=== PATIENT | female | born 1985 | race Caucasian/White ===

== ENCOUNTER 2016-11-20 19:18 | Emergency (ER) | payer SELFPAY ==
[2016-11-20 20:23] VITALS: TEMP 98.2; O2SAT 98
--- NOTE | 2016-11-20 21:38 | ED.PDOC ---
History of Present Illness - General Chief Complaint: Skin/Abrasion/Tear Stated Complaint: rash on side of neck Time Seen by Provider: 11/20/16 21:37 Source: patient, RN notes reviewed, Vital Signs reviewed - History of Present Illness Initial Comments: stated skin rash right side of neck started yesterday denies fever sore throat insect bite food allergies new soap Timing/Duration: other - 2days ago worse today Severity: moderate Location: face - neck area right Improving Factors: nothing Worsening Factors: nothing Associated Symptoms: rash, other - pain Allergies/Adverse Reactions: Allergies NO KNOWN ALLERGY Allergy (Verified 01/31/16 08:34) Home Medications: Ambulatory Orders Acyclovir [Zovirax] 800 mg PO TID #20 tab 11/20/16 Cephalexin 1,000 mg PO BID #30 cap 11/20/16 Tramadol HCl 50 mg PO TID PRN #14 tab 11/20/16 Review of Systems - Review of Systems Constitutional: States: no symptoms reported EENTM: States: no symptoms reported Respiratory: States: no symptoms reported Cardiology: States: no symptoms reported Gastrointestinal/Abdominal: States: no symptoms reported Genitourinary: States: no symptoms reported Musculoskeletal: States: no symptoms reported Skin: States: rash Endocrine: States: no symptoms reported Hematologic/Lymphatic: States: no symptoms reported Past Medical History (General) - Patient Medical History Hx Seizures: No Hx Stroke: No Hx Dementia: No Hx Asthma: No Hx of COPD: No Hx Cardiac Disorders: No Hx Congestive Heart Failure: No Hx Pacemaker: No Hx Hypertension: No Hx Thyroid Disease: No Hx Diabetes: No Hx Gastroesophageal Reflux: No Hx Renal Disease: No Hx Cancer: No Hx of HIV: No Hx Hepatitis C: No Hx MRSA: No Surgical History: no surgical history - Vaccination History Hx Influenza Vaccination: No Hx Pneumococcal Vaccination: No - Social History Hx Tobacco Use: No Hx Alcohol Use: No Hx Substance Use: No Hx Substance Use Treatment: No Hx Depression: No - Female History Patient is a Female of Child Bearing Age (10 -59 yrs old): Yes Hx Last Menstrual Period: 05/29/14 Patient : No Family Medical History - Family History Mother Family History: No Known Living Status: Still Living Physical Exam - Physical Exam General Appearance: Alert, No apparent distress Eyes, Ears, Nose, Throat Exam: PERRL/EOMI, normal ENT inspection, TMs normal, pharynx normal Neck: non-tender, full range of motion, supple Cardiovascular/Chest: normal peripheral pulses, regular rate, rhythm, no edema, no gallop Respiratory: chest non-tender, lungs clear, normal breath sounds Gastrointestinal/Abdominal: normal bowel sounds, non tender, soft, no organomegaly Back Exam: normal inspection, no CVA tenderness Extremity: normal range of motion, non-tender, normal inspection Neurologic: alert, normal mood/affect, oriented x 3 Skin Exam: warm/dry Skin Problem Location: neck Skin Character: erythema, macules, warm Lymphatic: no adenopathy Progress - Results/Orders Results/Orders: Laboratory Results WBC 7.1 K/mm3 (4.8-10.8) 11/20/16 21:50 RBC 4.08 M/mm3 (4.20-5.40) L 11/20/16 21:50 Hgb 13.3 gm/dL (12.0-16.0) 11/20/16 21:50 Hct 38.7 % (36.0-47.0) 11/20/16 21:50 MCV 94.8 fl (81.0-99.0) 11/20/16 21:50 MCH 32.5 pg (27.0-31.0) H 11/20/16 21:50 MCHC 34.4 g/dL (33.0-37.0) 11/20/16 21:50 RDW 11.7 % (11.5-14.5) 11/20/16 21:50 Plt Count 227 K/mm3 (130-400) 11/20/16 21:50 MPV 8.2 fl (7.40-10.4) 11/20/16 21:50 Absolute Neuts (auto) 3.90 K/uL (1.8-6.8) 11/20/16 21:50 Absolute Lymphs (auto) 2.50 K/uL (1.0-3.4) 11/20/16 21:50 Absolute Monos (auto) 0.50 K/uL (0.2-0.8) 11/20/16 21:50 Absolute Eos (auto) 0.10 K/uL (0.0-0.4) 11/20/16 21:50 Absolute Basos (auto) 0.00 K/uL (0.0-0.1) 11/20/16 21:50 Neutrophils % 55.1 % (42.0-78.0) 11/20/16 21:50 Lymphocytes % 35.8 % (20.0-50.0) 11/20/16 21:50 Monocytes % 7.2 % (2.0-9.0) 11/20/16 21:50 Eosinophils % 1.4 % (1.0-5.0) 11/20/16 21:50 Basophils % 0.5 % (0.0-2.0) 11/20/16 21:50 Serum HCG, Qual Negative 11/20/16 21:50 Departure - Departure Clinical Impression: Rash/skin eruption Time of Disposition: 22:42 Disposition: Discharge to Home or Self Care Condition: Good Departure Forms: ED Discharge - Pt. Copy, Patient Portal Self Enrollment Instructions: DI for Rash Prescriptions: Cephalexin 1,000 mg PO BID #30 cap Tramadol HCl 50 mg PO TID PRN #14 tab PRN Reason: Pain Acyclovir [Zovirax] 800 mg PO TID #20 tab Home Medications: Ambulatory Orders Acyclovir [Zovirax] 800 mg PO TID #20 tab 11/20/16 Cephalexin 1,000 mg PO BID #30 cap 11/20/16 Tramadol HCl 50 mg PO TID PRN #14 tab 11/20/16 Additional Instructions: RETURN TO EMERGENCY ROOM NEEDED;EXCUSE FROM WORK 11/21-03/2017;RETURN TO WORK 11/24/2016 WITHOUT RESTRICTIONS
[2016-11-20] MEDS ORDERED: HYDROcodone 7.5MG/APAP 325MG 1 EA TAB PO ONE (22:29)
[2016-11-20] MEDS ORDERED: CEPHALEXIN 500MG CAP (ER DISP) PO ONE (22:38)
[2016-11-20 23:08] VITALS: BP 124/68
== END 2016-11-20 23:08 | disposition home or self-care (01) ==
LOC: ER 19:18
DX: R21 Rash and other nonspecific skin eruption (principal)

== ENCOUNTER 2017-01-19 11:21 | Emergency (ER) | payer OTHER ==
[2017-01-19] MEDS ORDERED: IBUPROFEN 200 MG TAB PO ONE (11:36)
[2017-01-19 13:40] VITALS: BP 107/72; TEMP 99; O2SAT 100
[2017-01-19] MEDS ORDERED: PENICILLIN BENZATHINE 1.2 MU 1.2 MU/2 ML SYG IM ONE (13:54)
--- NOTE | 2017-01-19 13:57 | ED.PDOC ---
History of Present Illness - General Chief Complaint: ENT Problem Stated Complaint: Difficulty breathing, Sore throat Time Seen by Provider: 01/19/17 11:35 Source: patient Exam Limitations: no limitations - History of Present Illness Initial Comments: The patient is a 31-year-old female presenting to the emergency room secondary to sore throat with some associated nausea and vomiting since around midnight last night. she reports subjective fevers. No blood or bile in the vomitus. No previous symptoms. No shortness of breath or chest pain. No zinc. Near-syncope. No runny nose. Mild body aches. Severity: moderate Improving Factors: nothing Worsening Factors: nothing Associated Symptoms: fever/chills, loss of appetite, malaise, nausea/vomiting Allergies/Adverse Reactions: Allergies NO KNOWN ALLERGY Allergy (Verified 01/31/16 08:34) Home Medications: Ambulatory Orders Ondansetron [Zofran Odt] 4 mg PO Q4H PRN #5 tab 01/19/17 Review of Systems - Review of Systems Constitutional: States: fever, malaise EENTM: States: throat pain Respiratory: States: no symptoms reported Cardiology: States: no symptoms reported Gastrointestinal/Abdominal: States: see HPI Genitourinary: States: no symptoms reported Musculoskeletal: States: no symptoms reported Skin: States: no symptoms reported Neurological: States: no symptoms reported Endocrine: States: no symptoms reported All other Systems: No Change from Baseline Past Medical History (General) - Patient Medical History Hx Seizures: No Hx Stroke: No Hx Dementia: No Hx Asthma: No Hx of COPD: No Hx Cardiac Disorders: No Hx Congestive Heart Failure: No Hx Pacemaker: No Hx Hypertension: No Hx Thyroid Disease: No Hx Diabetes: No Hx Gastroesophageal Reflux: No Hx Renal Disease: No Hx Cancer: No Hx of HIV: No Hx Hepatitis C: No Hx MRSA: No Surgical History: no surgical history - Vaccination History Hx Tetanus, Diphtheria Vaccination: No Hx Influenza Vaccination: No Hx Pneumococcal Vaccination: No Immunizations Up to Date: Yes - Social History Hx Tobacco Use: No Hx Chewing Tobacco Use: No Hx Alcohol Use: No Hx Substance Use: No Hx Substance Use Treatment: No Hx Depression: No Feels Threatened In Home Enviroment: No Feels Threatened In a Relationship: No Hx Physical Abuse: No Hx Emotional Abuse: No Hx Suspected Abuse: No - Activities of Daily Living Hospice Agency (if applicable):: None - Female History Patient is a Female of Child Bearing Age (10 -59 yrs old): Yes Hx Last Menstrual Period: 05/29/14 Patient : No Family Medical History - Family History Mother Family History: No Known Living Status: Still Living Physical Exam - Physical Exam General Appearance: Alert, Comfortable, No apparent distress Eye Exam: bilateral normal Ears, Nose, Throat: hearing grossly normal, pharyngeal erythema Neck: non-tender, full range of motion, supple Respiratory: chest non-tender, lungs clear, normal breath sounds, no respiratory distress, no accessory muscle use Cardiovascular/Chest: normal peripheral pulses, regular rate, rhythm, no edema Peripheral Pulses: radial,right: 2+, radial,left: 2+, dorsalis pedis,right: 2+, dorsalis pedis,left: 2+ Gastrointestinal/Abdominal: non tender, soft Rectal Exam: deferred Back Exam: normal inspection, no CVA tenderness, no vertebral tenderness Extremity: normal range of motion, non-tender, normal inspection, no pedal edema , normal capillary refill - the patient appears well-hydrated and in no distress Neurologic: alert, normal mood/affect, oriented x 3 Skin Exam: normal color Comments: Vital Signs - 24 hr 01/19/17 01/19/17 13:18 13:35 Temperature 97 F L 99 F Pulse Rate [L 88 67 Arm] Respiratory 18 22 Rate Blood Pressure 111/80 107/72 [L Arm] O2 Sat by Pulse 97 100 Oximetry Progress - Progress Progress: 01/19/17 13:56 the patient is a 31-year-old female presenting with streptococcal pharyngitis that has tested positive here. She tested negative for flu. The patient will be given a dose of Bicillin LA here as treatment for the strep throat. She needs to not go to work until Sunday. Ibuprofen can be used for discomfort along with [id number]-[id number] Chloraseptic spray for discomfort. She needs to keep well-hydrated. She will be written for a short prescription of Zofran to use if needed for nausea and vomiting. Return to the emergency room for any acute worsening. - EKG/XRAY/CT CT Ordered: No CT Interpretation Call Back: No Departure - Departure Clinical Impression: Streptococcal sore throat Disposition: Discharge to Home or Self Care Condition: Fair Departure Forms: ED Discharge - Pt. Copy, Patient Portal Self Enrollment Instructions: DI for Strep Throat Diet: regular diet Activity: increase activity as tolerated Prescriptions: Ondansetron [Zofran Odt] 4 mg PO Q4H PRN #5 tab PRN Reason: Vomiting Home Medications: Ambulatory Orders Ondansetron [Zofran Odt] 4 mg PO Q4H PRN #5 tab 01/19/17 Additional Instructions: the patient is a 31-year-old female presenting with streptococcal pharyngitis that has tested positive here. She tested negative for flu. The patient will be given a dose of Bicillin LA here as treatment for the strep throat. She needs to not go to work until Sunday. Ibuprofen can be used for discomfort along with [id number] Chloraseptic spray for discomfort. She needs to keep well-hydrated. She will be written for a short prescription of Zofran to use if needed for nausea and vomiting. Return to the emergency room for any acute worsening.
== END 2017-01-19 14:35 | disposition home or self-care (01) ==
LOC: ER 11:21
DX: J02.0 Streptococcal pharyngitis (principal)
CPT/HCPCS: 87502; 87880; J0561

== ENCOUNTER 2017-05-05 12:33 | Emergency (ER) | payer OTHER ==
[2017-05-05] MEDS ORDERED: IBUPROFEN 200 MG TAB PO ONE (12:43)
[2017-05-05 12:57] VITALS: BP 119/72; TEMP 97.4; O2SAT 99
--- NOTE | 2017-05-05 13:04 | RAD ---
PROCEDURE: Wrist,Left 2 Views CLINICAL HISTORY: lateral pain distant injury INDICATION: Left wrist injury COMPARISON: None. TECHNIQUE: 2.0 Views of the left wrist were done. FINDINGS: There is no evidence of acute fractures or dislocation involving the bones of the left wrist. There is no evidence of any periosteal reactions involving the evaluated bones of the wrist joint. There is no visualization of chondrocalcinosis in the region of the wrist joint. The wrist joint arches are well-maintained. There is no evidence of ulnar variance. There are no focal erosive bony changes. The joint spaces of the left wrist are relatively well-maintained. The bone mineralization is normal for patient's age and sex. The soft tissues are radiographically unremarkable. There is no visualization of any radiopaque foreign bodies. If the wrist pain persists, repeat films can be done in 7-10 days interval to rule out currently radiographically occult fractures. Alternatively an MRI of the wrist can be obtained to rule out any occult fractures or bone marrow edema. IMPRESSION: Negative for acute bony trauma involving the left wrist Place of interpretation: [id number]. Electronically signed by: Erick Michelle MD 05/05/2017 1:03 PM CDT Workstation: [id number]
--- NOTE | 2017-05-05 13:09 | ED.PDOC ---
History of Present Illness - General Chief Complaint: Upper Extremity Injury Time Seen by Provider: 05/05/17 12:42 Source: patient Exam Limitations: no limitations - History of Present Illness Initial Comments: he patient is a 31-year-old female presented to the emergency roomsecondary to left lateral wrist pain that started yesterday. No recent injury. There is some mild tenderness to palpation over the distal ulna. No gross deformity. No bruising. No crepitus. No laxity. She is neurovascularly preserved. No pain in the hand. No radiculopathy. Timing/Duration: 24 hours Severity: mild Improving Factors: immobilization Worsening Factors: movement Associated Symptoms: denies symptoms Allergies/Adverse Reactions: Allergies NO KNOWN ALLERGY Allergy (Verified 01/31/16 08:34) Home Medications: Ambulatory Orders Ondansetron [Zofran Odt] 4 mg PO Q4H PRN #5 tab 01/19/17 Review of Systems - Review of Systems Constitutional: States: no symptoms reported EENTM: States: no symptoms reported Respiratory: States: no symptoms reported Cardiology: States: no symptoms reported Gastrointestinal/Abdominal: States: no symptoms reported Genitourinary: States: no symptoms reported Musculoskeletal: States: see HPI Skin: States: no symptoms reported Neurological: States: no symptoms reported Endocrine: States: no symptoms reported Hematologic/Lymphatic: States: no symptoms reported All other Systems: No Change from Baseline Past Medical History (General) - Patient Medical History Hx Seizures: No Hx Stroke: No Hx Dementia: No Hx Asthma: No Hx of COPD: No Hx Cardiac Disorders: No Hx Congestive Heart Failure: No Hx Pacemaker: No Hx Hypertension: No Hx Thyroid Disease: No Hx Diabetes: No Hx Gastroesophageal Reflux: No Hx Renal Disease: No Hx Cancer: No Hx of HIV: No Hx Hepatitis C: No Hx MRSA: No Surgical History: other - Vaccination History Hx Tetanus, Diphtheria Vaccination: No Hx Influenza Vaccination: No Hx Pneumococcal Vaccination: No - Social History Hx Tobacco Use: No Hx Chewing Tobacco Use: No Hx Alcohol Use: No Hx Substance Use: No Hx Substance Use Treatment: No Hx Depression: No Hx Physical Abuse: No Hx Emotional Abuse: No Hx Suspected Abuse: No - Female History Hx Last Menstrual Period: 05/29/14 Patient : No Family Medical History - Family History Mother Family History: No Known Living Status: Still Living Physical Exam - Physical Exam General Appearance: Alert, Comfortable, No apparent distress Eye Exam: bilateral normal Ears, Nose, Throat: hearing grossly normal, normal ENT inspection, normal pharynx Neck: non-tender, full range of motion, supple Respiratory: no respiratory distress, no accessory muscle use Cardiovascular/Chest: normal peripheral pulses, no edema Peripheral Pulses: radial,right: 2+, radial,left: 2+ Extremity: normal range of motion, no pedal edema, normal capillary refill, other - see history of present illness. No swelling is present. 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 X-ray is negative for any acute pathology. This is most likely simply a strain. She can wear a wrist immobilizer for the next 3 or 4 days. Anti-inflammatory such as ibuprofen or Aleve may help. Topical heat may help as well. ER warnings were given for any acute worsening. Departure - Departure Clinical Impression: Strain of wrist, left Qualifiers: Encounter type: initial encounter Qualified Code(s): S66.912A - Strain of unspecified muscle, fascia and tendon at wrist and hand level, left hand, initial encounter Disposition: Discharge to Home or Self Care Condition: Good Departure Forms: ED Discharge - Pt. Copy, Patient Portal Self Enrollment Instructions: DI for Forearm Muscle Strain Diet: regular diet Activity: increase activity as tolerated Home Medications: Ambulatory Orders Ondansetron [Zofran Odt] 4 mg PO Q4H PRN #5 tab 01/19/17 Additional Instructions: the patient is a 31-year-old female presenting with left lateral wrist discomfort for the last 24 hours. X-ray is negative for any acute pathology. This is most likely simply a strain. She can wear a wrist immobilizer for the next 3 or 4 days. Anti-inflammatory such as ibuprofen or Aleve may help. Topical heat may help as well. ER warnings were given for any acute worsening.
== END 2017-05-05 13:18 | disposition home or self-care (01) ==
LOC: ER 12:33
DX: S66.912A Strain of unspecified muscle, fascia and tendon at wrist and hand level, left hand, initial encounter (principal); X58.XXXA Exposure to other specified factors, initial encounter

== ENCOUNTER 2017-07-08 12:32 | Emergency (ER) | payer OTHER ==
[2017-07-08] MEDS ORDERED: SODIUM CHLORIDE 0.9% 1000ML 1,000 ML IVS ONE (13:52)
[2017-07-08] MEDS ORDERED: ONDANSETRON INJ 4 MG/2 ML VIAL IV ONE (13:52)
--- NOTE | 2017-07-08 13:56 | ED.PDOC ---
History of Present Illness - General Chief Complaint: GI Problem Time Seen by Provider: 07/08/17 13:15 Source: patient Exam Limitations: no limitations - History of Present Illness Initial Comments: Patient presents with N/V/D x one day. It started yesterday with non-bloody diarrhea several times and she had 2 episodes of non-bilious vomiting. She continues to have diarrhea today. She has nausea as well but no vomiting today. She has cramping in just below the sternum that is non-radiating, no alleviating factors, worse with vomiting, no particular timing nor context, no associated symptoms. Denies new eating establishments, similarly sick contacts , or recent travel. No other complaints. Timing/Duration: 24 hours Severity: mild Improving Factors: nothing Worsening Factors: nothing Associated Symptoms: denies symptoms Allergies/Adverse Reactions: Allergies NO KNOWN ALLERGY Allergy (Verified 01/31/16 08:34) Home Medications: Ambulatory Orders Ondansetron [Zofran Odt] 4 mg PO Q4H PRN #5 tab 01/19/17 Review of Systems - Review of Systems Constitutional: States: no symptoms reported EENTM: States: no symptoms reported Respiratory: States: no symptoms reported Cardiology: States: no symptoms reported Gastrointestinal/Abdominal: States: see HPI Genitourinary: States: no symptoms reported Musculoskeletal: States: no symptoms reported Skin: States: no symptoms reported Neurological: States: no symptoms reported Endocrine: States: no symptoms reported Hematologic/Lymphatic: States: no symptoms reported Past Medical History (General) - Patient Medical History Hx Seizures: No Hx Stroke: No Hx Dementia: No Hx Asthma: No Hx of COPD: No Hx Cardiac Disorders: No Hx Congestive Heart Failure: No Hx Pacemaker: No Hx Hypertension: No Hx Thyroid Disease: No Hx Diabetes: No Hx Gastroesophageal Reflux: No Hx Renal Disease: No Hx Cancer: No Hx of HIV: No Hx Hepatitis C: No Hx MRSA: No - Vaccination History Hx Tetanus, Diphtheria Vaccination: No Hx Influenza Vaccination: No Hx Pneumococcal Vaccination: No - Social History Hx Tobacco Use: No Hx Chewing Tobacco Use: No Hx Alcohol Use: No Hx Substance Use: No Hx Substance Use Treatment: No Hx Depression: No Hx Physical Abuse: No Hx Emotional Abuse: No Hx Suspected Abuse: No - Female History Hx Last Menstrual Period: 05/29/14 Patient : No Family Medical History - Family History Mother Family History: No Known Living Status: Still Living Physical Exam - Physical Exam General Appearance: Alert Respiratory: chest non-tender, lungs clear Cardiovascular/Chest: normal peripheral pulses, regular rate, rhythm Gastrointestinal/Abdominal: normal bowel sounds, non tender, soft, other - negative Rovsing's sign. No guarding nor rebound tenderness. Back Exam: no CVA tenderness Skin Exam: normal color Progress - Progress Progress: 07/08/17 16:10 Patient received one liter NS IV and zofran 4 mg IV x one. Her nausea improved and she was able to drink a small amount of apple juice although it still felt bad on her stomach. She was discharged with zofran and instructions on staying hydrated. Departure - Departure Clinical Impression: Nausea vomiting and diarrhea Disposition: Discharge to Home or Self Care Condition: Good Departure Forms: ED Discharge - Pt. Copy, Patient Portal Self Enrollment Diet: resume usual diet Home Medications: Ambulatory Orders Ondansetron [Zofran Odt] 4 mg PO Q4H PRN #5 tab 01/19/17 Additional Instructions: Take small amounts of fluid frequently to stay hydrated. Take medication as prescribed. Return to E.R. if abdominal pain worsens or symptoms do not resolve in 48 hours.
[2017-07-08] MEDS ORDERED: ONDANSETRON ODT (ER DISP) 8 MG TAB PO ONE (16:13)
[2017-07-08 16:48] VITALS: BP 110/73; TEMP 98.5; O2SAT 96
== END 2017-07-08 16:55 | disposition home or self-care (01) ==
LOC: ER 12:32
DX: R11.2 Nausea with vomiting, unspecified (principal); R19.7 Diarrhea, unspecified
CPT/HCPCS: 36415; 36416; 80053; 81001; 81025; 82948; 83690; 85025; J2405; J7030

== ENCOUNTER 2017-07-30 15:57 | Emergency (ER) | payer OTHER ==
[2017-07-30 16:17] VITALS: O2SAT 100
--- NOTE | 2017-07-30 16:29 | ED.PDOC ---
History of Present Illness - General Chief Complaint: ENT Problem Stated Complaint: SORE THROAT, COUGH, NAUSEA VOMITING Time Seen by Provider: 07/30/17 16:18 Source: patient Exam Limitations: no limitations Additional Information: C/O ST WITH SOME COUGH AND COUGHING UP SMALL AMOUNT OF BRB. - History of Present Illness Timing/Duration: this morning Severity: moderate Prearrival Treatment: no prearrival treatment Improving Factors: nothing Worsening Factors: nothing Allergies/Adverse Reactions: Allergies NO KNOWN ALLERGY Allergy (Verified 07/30/17 16:07) Home Medications: Ambulatory Orders Ondansetron [Zofran Odt] 4 mg PO Q4H PRN #5 tab 01/19/17 Amoxicillin & Pot Clavulanate [Augmentin] 1 tab PO BID #20 tab 07/30/17 Review of Systems - Review of Systems Constitutional: States: chills, other - HAS FELT "CLAMMY". Denies: fever EENTM: States: throat pain. Denies: eye pain, ear discharge, nose congestion Respiratory: States: cough, other - HAS COUGHED UP SMALL AMOUNT OF BRB. . Denies: short of breath, wheezing Cardiology: Denies: chest pain, palpitations, syncope Gastrointestinal/Abdominal: Denies: abdominal pain, nausea, vomiting Genitourinary: States: no symptoms reported Musculoskeletal: States: no symptoms reported Skin: States: other - CLAMMY Past Medical History (General) - Patient Medical History Hx Seizures: No Hx Stroke: No Hx Dementia: No Hx Asthma: No Hx of COPD: No Hx Cardiac Disorders: No Hx Congestive Heart Failure: No Hx Pacemaker: No Hx Hypertension: No Hx Thyroid Disease: No Hx Diabetes: No Hx Gastroesophageal Reflux: No Hx Renal Disease: No Hx Cancer: No Hx of HIV: No Hx Hepatitis C: No Hx MRSA: No Surgical History: no surgical history - Vaccination History Hx Tetanus, Diphtheria Vaccination: No Hx Influenza Vaccination: No Hx Pneumococcal Vaccination: No Immunizations Up to Date: No - Social History Hx Tobacco Use: No Hx Chewing Tobacco Use: No Hx Alcohol Use: No Hx Substance Use: No Hx Substance Use Treatment: No Hx Depression: No Feels Threatened In Home Enviroment: No Feels Threatened In a Relationship: No Hx Physical Abuse: No Hx Emotional Abuse: No Hx Suspected Abuse: No - Female History Patient is a Female of Child Bearing Age (10 -59 yrs old): Yes Hx Last Menstrual Period: 05/29/14 Patient : No Family Medical History - Family History Mother Family History: No Known Living Status: Still Living Hx Family Asthma: No Hx Family Congestive Heart Failure: No Physical Exam - Physical Exam General Appearance: Alert, Comfortable, No apparent distress Eye Exam: bilateral normal Ear Exam: bilateral ear: TM normal Throat Exam: other - MILD ERYTHEMA, NO EXUDATE Neck: full range of motion, supple, trachea midline, other - TENDER ENLARGED ANT CHAIN ADENOPATHY. SOME POST ADENOPATHY WELL Cardiovascular/Respiratory: regular rate, rhythm, normal breath sounds, no respiratory distress, other - NO W/R/R, NO MURMUR Abdominal Exam: non-tender, no organomegaly Neurologic: alert, oriented x 3 Skin Exam: normal color, other - SLIGHTLY DAMP TO TOUCH Progress - EKG/XRAY/CT XRAY: chest - SMALL BILATERAL BIBASILAR INFILTRATES Departure - Departure Clinical Impression: Pneumonia Qualifiers: Pneumonia type: due to Pneumococcus Laterality: bilateral Lung location: lower lobe of lung Qualified Code(s): J13 - Pneumonia due to Streptococcus pneumoniae Time of Disposition: 17:12 Disposition: Discharge to Home or Self Care Condition: Good Departure Forms: ED Discharge - Pt. Copy, Patient Portal Self Enrollment Instructions: Pneumonia-Adult Prescriptions: Amoxicillin & Pot Clavulanate [Augmentin] 1 tab PO BID #20 tab Home Medications: Ambulatory Orders Ondansetron [Zofran Odt] 4 mg PO Q4H PRN #5 tab 01/19/17 Amoxicillin & Pot Clavulanate [Augmentin] 1 tab PO BID #20 tab 07/30/17
--- NOTE | 2017-07-30 17:10 | RAD ---
EXAM DESCRIPTION: Chest,2 Views CLINICAL HISTORY: COUGH WITH HEMOPTYSIS COMPARISON: October 06, 2009 TECHNIQUE: PA/lateral FINDINGS: The lungs are well expanded and clear. No infiltrates or effusions or masses are noted. The heart is normal in size and shape with no evidence of vascular congestion. The trena and mediastinum demonstrate normal contours. The bony spine and chest wall is normal for age in appearance. IMPRESSION: Normal chest, two views Electronically signed by: Tyler Ann MD 07/30/2017 5:08 PM CDT
[2017-07-30] MEDS ORDERED: cefTRIAXone SODIUM 1 GM VIAL IM ONE (17:11)
[2017-07-30] MEDS ORDERED: LIDOCAINE 1% 10 ML VIAL INJ ONE (17:17)
[2017-07-30 17:39] VITALS: BP 122/68; TEMP 98
== END 2017-07-30 17:39 | disposition home or self-care (01) ==
LOC: ER 15:57
DX: J13 Pneumonia due to Streptococcus pneumoniae (principal)
CPT/HCPCS: 71020; 87070; 87651; J0696

== ENCOUNTER 2018-08-12 19:57 | Emergency (ER) | payer OTHER ==
[2018-08-12 20:15] VITALS: TEMP 97.9
[2018-08-12] MEDS ORDERED: TETANUS,DIPHTHERIA,PERTUSSIS 1 EA SYG IM ONE (20:33)
[2018-08-12] MEDS ORDERED: AMOXICILLIN 500 MG CAP PO ONE (20:33)
--- NOTE | 2018-08-12 20:33 | ED.PDOC ---
History of Present Illness - General Chief Complaint: Lower Extremity Injury Stated Complaint: stepped on nail c left foot Time Seen by Provider: 08/12/18 20:23 Source: patient Exam Limitations: no limitations - History of Present Illness Initial Comments: Lydia Gabreil 32 y/o female stated that she was walking outside his apartment [place] night barefoot and was dark stepped on sharp daquan nail initially felt brief stinging pain then went away but noted that it started getting swelled up and more paiful on weight bearing starting yesterday.No fever,no pain radiation but stated felt numb along the punctured wound. Pain - Lower Extremity: moderate: Left Foot Method of Injury: other - stepped on a nail Improving Factors: rest Worsening Factors: movement Associated Symptoms: pain Allergies/Adverse Reactions: Allergies NO KNOWN ALLERGY Allergy (Verified 08/12/18 20:15) Home Medications: Ambulatory Orders Ondansetron [Zofran Odt] 4 mg PO Q4H PRN #5 tab 01/19/17 Amoxicillin & Pot Clavulanate [Augmentin] 1 tab PO BID #20 tab 07/30/17 Amoxicillin [Amoxil] 1,000 mg PO BID 7 Days #30 cap 08/12/18 Review of Systems - Review of Systems Constitutional: States: no symptoms reported EENTM: States: no symptoms reported Respiratory: States: no symptoms reported Cardiology: States: no symptoms reported Gastrointestinal/Abdominal: States: no symptoms reported Genitourinary: States: no symptoms reported Musculoskeletal: States: no symptoms reported Skin: States: see HPI Neurological: States: no symptoms reported Past Medical History (General) - Patient Medical History Hx Seizures: No Hx Stroke: No Hx Dementia: No Hx Asthma: No Hx of COPD: No Hx Cardiac Disorders: No Hx Congestive Heart Failure: No Hx Pacemaker: No Hx Hypertension: No Hx Thyroid Disease: No Hx Diabetes: No Hx Gastroesophageal Reflux: No Hx Renal Disease: No Hx Cancer: No Hx of HIV: No Hx Hepatitis C: No Hx MRSA: No Surgical History: no surgical history - Vaccination History Hx Tetanus, Diphtheria Vaccination: No Hx Influenza Vaccination: No Hx Pneumococcal Vaccination: No - Social History Hx Tobacco Use: No Hx Chewing Tobacco Use: No Hx Alcohol Use: No Hx Substance Use: No Hx Substance Use Treatment: No Hx Depression: No Hx Physical Abuse: No Hx Emotional Abuse: No Hx Suspected Abuse: No - Activities of Daily Living Patient Lives Alone: No - Female History Hx Last Menstrual Period: 07/18/18 Patient : No Family Medical History - Family History Mother Family History: No Known Living Status: Still Living Hx Family Asthma: No Hx Family Congestive Heart Failure: No Physical Exam - Physical Exam General Appearance: Alert, Comfortable, No apparent distress Eyes, Ears, Nose, Throat: normal ENT inspection Neck: non-tender, full range of motion, supple, normal inspection Cardiovascular/Respiratory: regular rate, rhythm, no M/R/G, normal peripheral pulses Gastrointestinal/Abdominal: non-tender Back: normal inspection, no CVA tenderness, no vertebral tenderness Thigh/Hip: normal inspection, no evidence of injury Leg: normal inspection, no evidence of injury Knee: normal inspection, no evidence of injury Ankle: normal inspection, no evidence of injury Foot: swelling - localized w/puntured wound plantar aspect along distal first metatarsal left Progress - Progress Progress: 08/12/18 20:37 Vital Signs - 8 hr 08/12/18 20:09 Temperature 97.9 F Pulse Rate [ 94 H monitor] Respiratory 16 Rate Blood Pressure 132/78 [Left Arm] O2 Sat by Pulse 98 Oximetry - EKG/XRAY/CT XRAY: left foot -unremarkable foot x-ray Departure - Departure Clinical Impression: Pain of left foot Puncture wound of foot, left Qualifiers: Encounter type: initial encounter Qualified Code(s): S91.332A - Puncture wound without foreign body, left foot, initial encounter Time of Disposition: 22:03 Disposition: Discharge to Home or Self Care Departure Forms: ED Discharge - Pt. Copy, Patient Portal Self Enrollment Instructions: Wound Care (DC) Prescriptions: Amoxicillin [Amoxil] 1,000 mg PO BID 7 Days #30 cap Home Medications: Ambulatory Orders Ondansetron [Zofran Odt] 4 mg PO Q4H PRN #5 tab 01/19/17 Amoxicillin & Pot Clavulanate [Augmentin] 1 tab PO BID #20 tab 07/30/17 Amoxicillin [Amoxil] 1,000 mg PO BID 7 Days #30 cap 08/12/18 Additional Instructions: May use Epsom salt soak (over the counter )10 minutes 3 x a day until better; Reurn to Emergency room as needed;Elevate left leg at bedtime 20 degrees until better;May take Aleve (over the counter 1-2 tablets am/pm for pain
--- NOTE | 2018-08-12 20:50 | RAD ---
PROCEDURE: XR Left Foot Complete, 3 or More Views CLINICAL INDICATION: The patient is 32 years old and is Female; stepped on nail TECHNIQUE: Frontal, lateral and oblique views of the left foot. COMPARISON: No relevant prior studies available. FINDINGS: The site of pain is not given, which can reduce plain film sensitivity by up to 50%. BONES/JOINTS: Unremarkable.No acute fracture noted. No dislocation. Joint spaces maintained. SOFT TISSUES: Unremarkable.No radiopaque foreign body. No significant soft tissue swelling noted. No soft tissue gas identified. IMPRESSION: Unremarkable left foot x-rays. Electronically signed by: Aramis Mccabe MD 08/12/2018 8:49 PM CDT
[2018-08-12 22:17] VITALS: BP 129/75; O2SAT 99
== END 2018-08-12 22:19 | disposition home or self-care (01) ==
LOC: ER 19:57
DX: S91.332A Puncture wound without foreign body, left foot, initial encounter (principal); Y93.01 Activity, walking, marching and hiking; W45.0XXA Nail entering through skin, initial encounter; Z23 Encounter for immunization; Y92.038 Other place in apartment as the place of occurrence of the external cause

== ENCOUNTER 2018-09-07 20:04 | Emergency (ER) | payer OTHER ==
[2018-09-07] MEDS ORDERED: SODIUM CHLORIDE 0.9% 1000ML 1,000 ML IVS ONE (20:28)
[2018-09-07] MEDS ORDERED: ONDANSETRON ODT 8 MG TAB SL ONE (20:28)
--- NOTE | 2018-09-07 20:33 | ED.PDOC ---
History of Present Illness - General Chief Complaint: General Stated Complaint: sore throat, n/v Time Seen by Provider: 09/07/18 20:28 Source: patient Exam Limitations: no limitations - History of Present Illness Initial Comments: patient comes in today with 2 day history of nausea, sore throat, and emesis that started today. Patient states she feels like she can't get her breath because it hurts when she breathes on her throat. Patient has swelling on the left side of her throat but no wheezing, cough, fever or chills. She does have slight body aches earlier today. Patient had no sick contacts, recent travel, or questionable by mouth intake. She denies any abdominal pain. She is not on control but is currently on her menses and has not had any abnormal menstrual history. Patient is otherwise healthy and has no significant past medical history. Timing/Duration: 24 hours, getting worse Improving Factors: nothing Worsening Factors: eating Associated Symptoms: malaise, shortness of breath Allergies/Adverse Reactions: Allergies NO KNOWN ALLERGY Allergy (Verified 08/12/18 20:15) Home Medications: Ambulatory Orders Ondansetron [Zofran Odt] 4 mg PO Q4H PRN #5 tab 01/19/17 Amoxicillin & Pot Clavulanate [Augmentin] 1 tab PO BID #20 tab 07/30/17 Amoxicillin [Amoxil] 1,000 mg PO BID 7 Days #30 cap 08/12/18 Review of Systems - Review of Systems Constitutional: States: chills, malaise. Denies: fever EENTM: States: throat pain. Denies: eye pain, ear pain, nose congestion Respiratory: States: short of breath. Denies: cough, wheezing Cardiology: States: no symptoms reported. Denies: chest pain, edema, palpitations, syncope Gastrointestinal/Abdominal: States: nausea, vomiting. Denies: abdominal pain, constipation, diarrhea Genitourinary: States: no symptoms reported Musculoskeletal: States: no symptoms reported Past Medical History (General) - Patient Medical History Hx Seizures: No Hx Stroke: No Hx Dementia: No Hx Asthma: No Hx of COPD: No Hx Cardiac Disorders: No Hx Congestive Heart Failure: No Hx Pacemaker: No Hx Hypertension: No Hx Thyroid Disease: No Hx Diabetes: No Hx Gastroesophageal Reflux: No Hx Renal Disease: No Hx Cancer: No Hx of HIV: No Hx Hepatitis C: No Hx MRSA: No - Vaccination History Hx Tetanus, Diphtheria Vaccination: No Hx Influenza Vaccination: No Hx Pneumococcal Vaccination: No - Social History Hx Tobacco Use: No Hx Chewing Tobacco Use: No Hx Alcohol Use: No Hx Substance Use: No Hx Substance Use Treatment: No Hx Depression: No Hx Physical Abuse: No Hx Emotional Abuse: No Hx Suspected Abuse: No - Female History Hx Last Menstrual Period: 07/18/18 Patient : No Family Medical History - Family History Mother Family History: No Known Living Status: Still Living Hx Family Asthma: No Hx Family Congestive Heart Failure: No Physical Exam - Physical Exam General Appearance: Alert, No apparent distress Eye Exam: bilateral normal Ears, Nose, Throat: hearing grossly normal, normal ENT inspection, other - posterior pharynx with erythema, no edema or exudate. Uvula midline Neck: full range of motion, supple, lymphadenopathy (L) Respiratory: chest non-tender, lungs clear, normal breath sounds, no respiratory distress Cardiovascular/Chest: normal peripheral pulses, regular rate, rhythm, no edema, no gallop, no JVD, no murmur Peripheral Pulses: radial,right: 2+, radial,left: 2+ Gastrointestinal/Abdominal: normal bowel sounds, non tender, soft Back Exam: no CVA tenderness Extremity: normal range of motion Neurologic: operations professional II-XII nml as tested Progress - Results/Orders Results/Orders: Laboratory Results WBC 5.8 K/mm3 (4.8-10.8) 09/07/18 20:28 RBC 4.05 M/mm3 (4.20-5.40) L 09/07/18 20:28 Hgb 13.3 gm/dL (12.0-16.0) 09/07/18 20:28 Hct 39.2 % (36.0-47.0) 09/07/18 20:28 MCV 96.8 fl (81.0-99.0) 09/07/18 20:28 MCH 32.8 pg (27.0-31.0) H 09/07/18 20:28 MCHC 33.8 g/dL (33.0-37.0) 09/07/18 20:28 RDW 12.3 % (11.5-14.5) 09/07/18 20:28 Plt Count 224 K/mm3 (130-400) 09/07/18 20:28 MPV 8.6 fl (7.40-10.4) 09/07/18 20:28 Absolute Neuts (auto) 3.20 K/uL (1.8-6.8) 09/07/18 20: Absolute Lymphs (auto) 1.90 K/uL (1.0-3.4) 09/07/18 20: Absolute Monos (auto) 0.60 K/uL (0.2-0.8) 09/07/18 20: Absolute Eos (auto) 0.10 K/uL (0.0-0.4) 09/07/18 20: Absolute Basos (auto) 0.00 K/uL (0.0-0.1) 09/07/18 20: Neutrophils % 54.6 % (42.0-78.0) 09/07/18 20: Lymphocytes % 33.2 % (20.0-50.0) 09/07/18: Monocytes % 9.6 % (2.0-9.0) H 09/07/18: Eosinophils % 2.2 % (1.0-5.0) 09/07/18 20: Basophils % 0.4 % (0.0-2.0) 09/07/18 20: Sodium 141 mmol/L (135-145) 09/07/18 20: Potassium 3.7 mmol/L (3.6-5.0) 09/07/18 20: Chloride 104 mmol/L (101-111) 09/07/18: Carbon Dioxide 30 mmol/L (21-31) 09/07/18 20: Anion Gap 10.7 (12-18) L 09/07/18 20: BUN 17 mg/dL (7-18) 09/07/18 20: Creatinine 0.47 mg/dL (0.6-1.3) L 09/07/18 20: BUN/Creatinine Ratio 36.2 (10-20) H 09/07/18 20: Random Glucose 88 mg/dL (70-105) 09/07/18 20: Serum Osmolality 282.2 mOsm/L (275-295) 09/07/18 20: Calcium 9.1 mg/dL (8.4-10.2) 09/07/18 20:28 Total Bilirubin 0.5 mg/dL (0.2-1.0) 09/07/18 20:28 AST 21 IU/L (10-42) 09/07/18 20:28 ALT 20 IU/L (10-60) 09/07/18 20:28 Alkaline Phosphatase 71 IU/L (42-121) 09/07/18 20: Serum Total Protein 7.3 gm/dL (6.4-8.2) 09/07/18 20: Albumin 4.0 g/dl (3.2-5.5) 09/07/18 20: Globulin 3.3 gm/dL (2.3-3.5) 09/07/18 20: Albumin/Globulin Ratio 1.2 (1.1-1.9) 09/07/18 20: Serum HCG, Qual Negative 09/07/18 20:29 Group A Strep Rapid Negative (NEGATIVE) 09/07/18 20:46 Patient is doing better. No nausea now and just complaining of throat pain. Re -exam showes no deviation of uvula and no swelling of the post pharynx. Departure - Departure Clinical Impression: Pharyngitis Qualifiers: Pharyngitis/tonsillitis etiology: unspecified etiology Qualified Code(s): J02.9 - Acute pharyngitis, unspecified Disposition: Discharge to Home or Self Care Condition: Good Departure Forms: ED Discharge - Pt. Copy, Patient Portal Self Enrollment Home Medications: Ambulatory Orders Ondansetron [Zofran Odt] 4 mg PO Q4H PRN #5 tab 01/19/17 Amoxicillin & Pot Clavulanate [Augmentin] 1 tab PO BID #20 tab 07/30/17 Amoxicillin [Amoxil] 1,000 mg PO BID 7 Days #30 cap 08/12/18 Additional Instructions: OTC Tylenol and chloraseptic spray. Follow up on Sunday with PCP if not better. Return to ER for increase sweling, pain, or intractable emesis.
[2018-09-07 20:45] VITALS: TEMP 97.8; O2SAT 100
[2018-09-07] MEDS ORDERED: KETOROLAC TROMETHAMINE INJ 30 MG/ML VIAL IV ONE (21:32)
[2018-09-07] MEDS ORDERED: PROMETHAZINE HCL INJ 12.5 MG in SODIUM CHLORIDE 0.9% 50ML 50 ML IVPB ONE (21:32)
[2018-09-07] MEDS ORDERED: SODIUM CHLORIDE 0.9% 50ML 50 ML ONE (21:41)
[2018-09-07] MEDS ORDERED: PROMETHAZINE HCL INJ 25 MG/ML VIAL ONE (21:41)
[2018-09-07 22:57] VITALS: BP 101/66
== END 2018-09-07 21:50 | disposition home or self-care (01) ==
LOC: ER 20:04
DX: J02.9 Acute pharyngitis, unspecified (principal); R11.2 Nausea with vomiting, unspecified
CPT/HCPCS: 36415; 80053; 84703; 85025; 87880; A4216; J1885; J2550; J7030

== ENCOUNTER 2019-01-12 19:26 | Emergency (ER) | payer OTHER ==
[2019-01-12 20:07] VITALS: TEMP 97.7
[2019-01-12] MEDS ORDERED: ALUM & MAG HYDROX-SIMETHICONE 30 ML, LIDOCAINE VISCOUS 2% 15 ML PO ONE ×2 (20:28)
[2019-01-12] MEDS ORDERED: LIDOCAINE HCL 2% (MOUTH-THROAT) 15 ML UD ONE (20:30)
[2019-01-12] MEDS ORDERED: ALUM & MAG HYDROX-SIMETHICONE 30 ML UD ONE (20:30)
--- NOTE | 2019-01-12 20:59 | ED.PDOC ---
History of Present Illness - General Chief Complaint: Abdominal Pain Stated Complaint: N/V, lower abdomen pain, headache, poss Time Seen by Provider: 01/12/19 20:10 Information Source: patient, Vital Signs reviewed Exam Limitations: no limitations - History of Present Illness Initial Comments: 33 yo female with 24 hrs of sharp epigastric pain. No previous episodes. Abdominal Pain Onset Location: RUQ, LUQ, epigastric Pain Radiation: no radiation Quality: moderate, sharpness Timing/Duration: 24 hours Improving Factors: nothing Worsening Factors: nothing Associated Symptoms: denies symptoms Review of Systems - Review of Systems Constitutional: States: no symptoms reported EENTM: States: no symptoms reported Respiratory: States: no symptoms reported Cardiology: States: no symptoms reported Gastrointestinal/Abdominal: States: see HPI Genitourinary: States: see HPI Musculoskeletal: States: no symptoms reported Skin: States: no symptoms reported Neurological: States: no symptoms reported Endocrine: States: no symptoms reported Past Medical History (General) - Patient Medical History Hx Seizures: No Hx Stroke: No Hx Dementia: No Hx Asthma: No Hx of COPD: No Hx Cardiac Disorders: No Hx Congestive Heart Failure: No Hx Pacemaker: No Hx Hypertension: No Hx Thyroid Disease: No Hx Diabetes: No Hx Gastroesophageal Reflux: No Hx Renal Disease: No Hx Cancer: No Hx of HIV: No Hx Hepatitis C: No Hx MRSA: No Surgical History: no surgical history - Vaccination History Hx Tetanus, Diphtheria Vaccination: No Hx Influenza Vaccination: No Hx Pneumococcal Vaccination: No - Social History Hx Tobacco Use: No Hx Chewing Tobacco Use: No Hx Alcohol Use: No Hx Substance Use: No Hx Substance Use Treatment: No Hx Depression: No Hx Physical Abuse: No Hx Emotional Abuse: No Hx Suspected Abuse: No - Female History Hx Last Menstrual Period: 07/18/18 Patient : No Family Medical History - Family History Mother Family History: No Known Living Status: Still Living Hx Family Asthma: No Hx Family Congestive Heart Failure: No Physical Exam - Physical Exam General Appearance: Alert, Comfortable, No apparent distress Eyes, Ears, Nose, Throat Exam: other - pink conj; anicteric Neck: supple, normal inspection Respiratory: normal breath sounds, no respiratory distress, no accessory muscle use Cardiovascular/Chest: regular rate, rhythm, no edema, no murmur Gastrointestinal/Abdominal: soft, no organomegaly, tenderness - epigastric>RUQ>LUQ Back Exam: normal inspection, no CVA tenderness, no vertebral tenderness Extremity: normal range of motion, normal inspection Neurologic: alert, normal mood/affect, oriented x 3 Skin Exam: normal color, warm/dry Progress - Progress Progress: 01/12/19 20:58 Unchanged after GI cocktail 01/12/19 21:36 33 yo healthy female c/o mainly epigastric abd pain for 1 day. Minimal findings on exam. Lab unremarkable. Little response to GI cocktail. Will start on H2 colleen & refer to clinic for possible RUQ US. - Results/Orders Results/Orders: WBC 7 LFTs normal hCG negative Departure - Departure Clinical Impression: Abdominal pain Qualifiers: Abdominal location: upper abdomen, unspecified Qualified Code(s): R10.10 - Upper abdominal pain, unspecified Time of Disposition: 21:37 Disposition: Discharge to Home or Self Care Departure Forms: ED Discharge - Pt. Copy, Patient Portal Self Enrollment Instructions: DI for Abdominal Pain-Adult Referrals: SIMONA TAYLOR MD REF [Referring] - 1-2 Days Prescriptions: Famotidine [Pepcid Tab] 20 mg PO BID 5 Days #10 tab Home Medications: Ambulatory Orders Famotidine [Pepcid Tab] 20 mg PO BID 5 Days #10 tab 01/12/19
[2019-01-12 21:53] VITALS: BP 117/88; O2SAT 98
== END 2019-01-12 21:54 | disposition home or self-care (01) ==
LOC: ER 19:26
DX: R10.13 Epigastric pain (principal); R11.2 Nausea with vomiting, unspecified; Z32.02 Encounter for pregnancy test, result negative

== ENCOUNTER 2019-06-01 20:13 | Emergency (ER) | payer OTHER ==
[2019-06-01 20:28] VITALS: TEMP 98.1; O2SAT 100
--- NOTE | 2019-06-01 21:09 | ED.PDOC ---
History of Present Illness - General Chief Complaint: Abdominal Pain Stated Complaint: low abd cramping, missed period Time Seen by Provider: 06/01/19 20:30 Information Source: patient Exam Limitations: no limitations - History of Present Illness Initial Comments: Lydia jimenez 33 y/o female stated that she had lower abdominal cramps this morning No N/V/D;no dysuria ,no hematu.ayah.done OTC test and stated noted to be positive;so came to ER to get it check. Abdominal Pain Onset Location: suprapubic Pain Radiation: no radiation Quality: cramping Timing/Duration: 4-6 hours Improving Factors: nothing Worsening Factors: nothing Associated Symptoms: other - see hpi Review of Systems - Review of Systems Gastrointestinal/Abdominal: States: see HPI, other - abdominal cramps All other Systems: Reviewed and Negative, No Change from Baseline Past Medical History (General) - Patient Medical History Hx Seizures: No Hx Stroke: No Hx Dementia: No Hx Asthma: No Hx of COPD: No Hx Cardiac Disorders: No Hx Congestive Heart Failure: No Hx Pacemaker: No Hx Hypertension: No Hx Thyroid Disease: No Hx Diabetes: No Hx Gastroesophageal Reflux: No Hx Renal Disease: No Hx Cancer: No Hx of HIV: No Hx Hepatitis C: No Hx MRSA: No Surgical History: no surgical history - Vaccination History Hx Tetanus, Diphtheria Vaccination: No Hx Influenza Vaccination: Yes Hx Pneumococcal Vaccination: No - Social History Hx Tobacco Use: No Hx Chewing Tobacco Use: No Hx Alcohol Use: No Hx Substance Use: No Hx Substance Use Treatment: No Hx Depression: No Hx Physical Abuse: No Hx Emotional Abuse: No Hx Suspected Abuse: No - Female History Patient is a Female of Child Bearing Age (10 -59 yrs old): Yes Hx Last Menstrual Period: 04/21/19 Patient : No - Triage Comment ED Triage Comment: wants pregnacy test, and has low abd crampijng Family Medical History - Family History Mother Family History: No Known Living Status: Still Living Hx Family Asthma: No Hx Family Congestive Heart Failure: No Physical Exam - Physical Exam General Appearance: Alert, Comfortable, No apparent distress Eyes, Ears, Nose, Throat Exam: normal ENT inspection Neck: supple, normal inspection Respiratory: chest non-tender, lungs clear, normal breath sounds Cardiovascular/Chest: normal peripheral pulses, regular rate, rhythm Peripheral Pulses: No deficit Gastrointestinal/Abdominal: non tender, soft Back Exam: no CVA tenderness, no vertebral tenderness Extremity: no pedal edema, no calf tenderness Neurologic: alert Progress - Progress Progress: 06/01/19 21:11 Vital Signs - 8 hr 06/01/19 20:24 Temperature 98.1 F Pulse Rate [ 74 Right] Respiratory 16 Rate Blood Pressure 127/79 [Left Arm] O2 Sat by Pulse 100 Oximetry - Results/Orders Results/Orders: Laboratory Results - last 24 hr 06/01/19 06/01/19 20:32 20:32 Urine Color Yellow Urine Appearance Clear Urine pH 6.0 Ur Specific Agness >= 1.030 Urine Protein Negative Urine Glucose (UA) Negative Urine Ketones Negative Urine Blood Negative Urine Nitrite Negative Urine Bilirubin Negative Urine Urobilinogen 1.0 Ur Leukocyte Esterase Negative Urine RBC 1-3 Urine WBC 3-5 H Ur Epithelial Cells 3-5 Urine Bacteria 1+ Urine HCG, Qual Negative Departure - Departure Clinical Impression: Amenorrhea, Abdominal bloating with cramps Time of Disposition: 21:12 Disposition: Discharge to Home or Self Care Condition: Fair Departure Forms: ED Discharge - Pt. Copy, Patient Portal Self Enrollment Home Medications: Ambulatory Orders Famotidine [Pepcid Tab] 20 mg PO BID 5 Days #10 tab 01/12/19 Additional Instructions: Follow up with Professor Of Literature of choice as needed;Return to emergency room as needed
[2019-06-01 21:30] VITALS: BP 121/74
== END 2019-06-01 21:25 | disposition home or self-care (01) ==
LOC: ER 20:13
DX: N91.2 Amenorrhea, unspecified (principal); R10.30 Lower abdominal pain, unspecified; R14.0 Abdominal distension (gaseous); Z32.02 Encounter for pregnancy test, result negative

== ENCOUNTER 2019-06-10 19:09 | Emergency (ER) | payer OTHER ==
[2019-06-10 19:23] VITALS: TEMP 98.2
--- NOTE | 2019-06-10 19:44 | ED.PDOC ---
History of Present Illness - General Chief Complaint: Abdominal Pain Stated Complaint: nausea, abd cramping Time Seen by Provider: 06/10/19 19:25 Source: patient, family Exam Limitations: no limitations - History of Present Illness Initial Comments: PT STATES SHE THINKS SHE IS . LMP WAS IN MARCH. SHE TOOK 6 HOME PREG TESTS, 3 WERE POS AND 3 WERE NEG, SO SHE WOULD LIKE CONFIRMATORY TESTING. PT REQUESTS SERUM HCG INSTEAD OF URINE. "MORNING SICKNESS" NAUSEA AND VOMITING AND CRAMPING AROUND UMBILICUS (NOT PELVIC). SHE STATES SHE IS DRINKING A LOT OF WATER TO STAY HYDRATED. NO VAGINAL BLEEDING OR DISCHARGE. Timing/Duration: intermittent Severity: moderate Improving Factors: nothing Worsening Factors: nothing Associated Symptoms: nausea/vomiting Allergies/Adverse Reactions: Allergies NO KNOWN ALLERGY Allergy (Verified 01/12/19 20:06) Home Medications: Ambulatory Orders NK 06/10/19 Review of Systems - Review of Systems Constitutional: Denies: chills, fever EENTM: States: no symptoms reported Respiratory: States: no symptoms reported Cardiology: States: no symptoms reported. Denies: chest pain, palpitations Gastrointestinal/Abdominal: States: nausea, vomiting. Denies: abdominal pain - MILD CRAMPING PAIN. , constipation, diarrhea Genitourinary: Denies: discharge, dysuria, frequency, hematuria Musculoskeletal: States: no symptoms reported Skin: States: no symptoms reported Neurological: States: no symptoms reported Endocrine: States: no symptoms reported Hematologic/Lymphatic: States: no symptoms reported All other Systems: Reviewed and Negative Past Medical History (General) - Patient Medical History Hx Seizures: No Hx Stroke: No Hx Dementia: No Hx Asthma: No Hx of COPD: No Hx Cardiac Disorders: No Hx Congestive Heart Failure: No Hx Pacemaker: No Hx Hypertension: No Hx Thyroid Disease: No Hx Diabetes: No Hx Gastroesophageal Reflux: No Hx Renal Disease: No Hx Cancer: No Hx of HIV: No Hx Hepatitis C: No Hx MRSA: No Surgical History: no surgical history - Vaccination History Hx Tetanus, Diphtheria Vaccination: No Hx Influenza Vaccination: Yes Hx Pneumococcal Vaccination: No - Social History Hx Tobacco Use: No Hx Chewing Tobacco Use: No Hx Alcohol Use: No Hx Substance Use: No Hx Substance Use Treatment: No Hx Depression: No Hx Physical Abuse: No Hx Emotional Abuse: No Hx Suspected Abuse: No - Female History Patient is a Female of Child Bearing Age (10 -59 yrs old): Yes Hx Last Menstrual Period: 04/21/19 Patient : - unsure Family Medical History - Family History Mother Family History: No Known Living Status: Still Living Hx Family Asthma: No Hx Family Congestive Heart Failure: No Physical Exam - Physical Exam General Appearance: Alert, No apparent distress Eye Exam: bilateral normal Ears, Nose, Throat: hearing grossly normal, normal ENT inspection Neck: full range of motion, normal inspection Respiratory: lungs clear, normal breath sounds Cardiovascular/Chest: normal peripheral pulses, regular rate, rhythm Peripheral Pulses: radial,right: 2+, radial,left: 2+ Gastrointestinal/Abdominal: normal bowel sounds, non tender - NO GUARDING OR REBOUND. , soft, no organomegaly, no pulsatile mass Back Exam: normal inspection, no CVA tenderness Extremity: normal range of motion, normal inspection Neurologic: alert, normal mood/affect Skin Exam: normal color, warm/dry Lymphatic: no adenopathy Progress - Progress Progress: 06/10/19 19:48 NOT A SURGICAL ABDOMEN, THUS IMAGING SUCH CT IS NOT INDICATED. 06/10/19 21:44 UA AND HCG NEG. VIRAL GASTROENTERITIS WITH MILD, GENERALIZED CRAMPING PAIN. PT DECLINES MED OFFER FOR N/V. SAFE FOR DC TO HOME. Departure - Departure Clinical Impression: Viral gastroenteritis Nausea & vomiting Qualifiers: Vomiting type: unspecified Vomiting Intractability: non-intractable Qualified Code(s): R11.2 - Nausea with vomiting, unspecified Disposition: Discharge to Home or Self Care Condition: Good Departure Forms: ED Discharge - Pt. Copy, Patient Portal Self Enrollment Instructions: Viral Gastroenteritis, Adult (DC) Diet: resume usual diet Activity: increase activity as tolerated Home Medications: Ambulatory Orders NK 06/10/19
[2019-06-10 21:54] VITALS: BP 121/55; O2SAT 98
== END 2019-06-10 21:54 | disposition home or self-care (01) ==
LOC: ER 19:09
DX: A08.4 Viral intestinal infection, unspecified (principal); Z32.02 Encounter for pregnancy test, result negative

== ENCOUNTER 2019-08-02 13:41 | Emergency (ER) | payer OTHER ==
[2019-08-02] MEDS ORDERED: SODIUM CHLORIDE 0.9% (FLUSH) 10 ML SYG IV PRN (13:57)
--- NOTE | 2019-08-02 14:01 | ED.PDOC ---
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 Last menses was 1 month ago but she only had a little bit of spotting. This is her 1st . Pt denies abdominal pain, dysuria, vaginal bleeding, vaginal d/c, cp, sob, n/v/d. She does complain of her breasts as being sore. Timing/Duration: week - 2 Quality: mild Onset Location: other - breast pain Radiation: none Activites at Onset: none Prior abdominal problems: none Sexual intercourse history: less than 2 months ago, single partner Improving Factors: nothing Worsening Factors: other - touch her breasts Associated Symptoms: denies symptoms Allergies/Adverse Reactions: Allergies NO KNOWN ALLERGY Allergy (Verified 01/12/19 20:06) Home Medications: Ambulatory Orders NK 06/10/19 Review of Systems - Review of Systems Constitutional: States: see HPI. Denies: chills, fever EENTM: States: no symptoms reported Respiratory: States: no symptoms reported. Denies: cough, short of breath Cardiology: States: no symptoms reported. Denies: chest pain, palpitations Gastrointestinal/Abdominal: States: no symptoms reported, see HPI Genitourinary: States: no symptoms reported. Denies: discharge, dysuria, frequency, hematuria, pain Musculoskeletal: States: see HPI Skin: States: no symptoms reported, see HPI Neurological: States: no symptoms reported, see HPI Endocrine: States: no symptoms reported Hematologic/Lymphatic: States: no symptoms reported All other Systems: Reviewed and Negative Past Medical History (General) - Patient Medical History Hx Seizures: No Hx Stroke: No Hx Dementia: No Hx Asthma: No Hx of COPD: No Hx Cardiac Disorders: No Hx Congestive Heart Failure: No Hx Pacemaker: No Hx Hypertension: No Hx Thyroid Disease: No Hx Diabetes: No Hx Gastroesophageal Reflux: No Hx Renal Disease: No Hx Cancer: No Hx of HIV: No Hx Hepatitis C: No Hx MRSA: No - Vaccination History Hx Tetanus, Diphtheria Vaccination: No Hx Influenza Vaccination: Yes Hx Pneumococcal Vaccination: No - Social History Hx Tobacco Use: No Hx Chewing Tobacco Use: No Hx Alcohol Use: No Hx Substance Use: No Hx Substance Use Treatment: No Hx Depression: No Hx Physical Abuse: No Hx Emotional Abuse: No Hx Suspected Abuse: No - Female History Hx Last Menstrual Period: 04/21/19 Patient : - unsure Family Medical History - Family History Mother Family History: No Known Living Status: Still Living Hx Family Asthma: No Hx Family Congestive Heart Failure: No Physical Exam - Physical Exam General Appearance: Alert, Comfortable, No apparent distress, Well Developed, Well Groomed, Well Hydrated, Well Nourished Eyes, Ears, Nose, Throat Exam: PERRL/EOMI, normal ENT inspection - Pt missing tooth #8 Neck: non-tender, full range of motion, supple, normal inspection Cardiovascular/Respiratory: regular rate, rhythm, no M/R/G, normal peripheral pulses, no JVD, normal breath sounds, no respiratory distress Gastrointestinal/Abdominal: normal bowel sounds, non tender, soft, no organomegaly, no pulsatile mass Pelvic Exam: other - pelvic exam deferred at pt request Back Exam: normal inspection, no CVA tenderness, no vertebral tenderness Extremity: normal range of motion, non-tender, normal inspection 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 Pt is not . Plan on d/c home. Pt voices understanding and agreement with the plan of care. Wilfredo Coker M.D. #[id number] - Results/Orders Results/Orders: 08/02/19 13:57 IV Care:Saline Lock per Protoc QSHIFT Sodium Chloride 0.9% (Flush) [Saline Flush Syringe] 10 ml IV PRN PRN Laboratory Results - last 24 hr 08/02/19 08/02/19 08/02/19 14:12 14:12 14:12 WBC 5.7 RBC 3.98 L Hgb 13.3 Hct 38.2 MCV 95.9 MCH 33.3 H MCHC 34.8 RDW 12.3 Plt Count 242 MPV 8.5 Absolute Neuts (auto) 3.80 Absolute Lymphs (auto) 1.50 Absolute Monos (auto) 0.30 Absolute Eos (auto) 0.10 Absolute Basos (auto) 0.00 Neutrophils % 66.2 Lymphocytes % 26.7 Monocytes % 5.5 Eosinophils % 1.0 Basophils % 0.6 Beta HCG, Quant < 0.6 Urine Color Urine Appearance Urine pH Ur Specific [place] Urine Protein Urine Glucose (UA) Urine Ketones Urine Blood Urine Nitrite Urine Bilirubin Urine Urobilinogen Ur Leukocyte Esterase Urine RBC Urine WBC Ur Epithelial Cells Urine Bacteria Patient ABO/Rh Cancelled Antibody Screen Cancelled 08/02/19 14:12 WBC RBC Hgb Hct MCV MCH MCHC RDW Plt Count MPV Absolute Neuts (auto) Absolute Lymphs (auto) Absolute Monos (auto) Absolute Eos (auto) Absolute Basos (auto) Neutrophils % Lymphocytes % Monocytes % Eosinophils % Basophils % Beta HCG, Quant Urine Color Yellow Urine Appearance Clear Urine pH 7.0 Ur Specific [place] 1.020 Urine Protein Negative Urine Glucose (UA) Negative Urine Ketones Negative Urine Blood Trace-intact H Urine Nitrite Negative Urine Bilirubin Negative Urine Urobilinogen 0.2 Ur Leukocyte Esterase Negative Urine RBC 3-5 H Urine WBC 0 Ur Epithelial Cells 5-10 Urine Bacteria Rare Patient ABO/Rh Antibody Screen Departure - Departure Clinical Impression: Lower abdominal pain of unknown etiology Disposition: Discharge to Home or Self Care Condition: Good Departure Forms: ED Discharge - Pt. Copy, Patient Portal Self Enrollment Instructions: DI for Vaginal Bleeding Referrals: Min Zamora MD [Primary Care Provider] - 1-2 Weeks Home Medications: Ambulatory Orders NK 06/10/19
[2019-08-02 15:21] VITALS: TEMP 97.3
[2019-08-02 15:23] VITALS: BP 117/75; O2SAT 99
== END 2019-08-02 15:22 | disposition home or self-care (01) ==
LOC: ER 13:41
DX: R10.30 Lower abdominal pain, unspecified (principal); N64.4 Mastodynia; Z32.02 Encounter for pregnancy test, result negative

== ENCOUNTER 2019-10-26 21:46 | Emergency (ER) | payer OTHER ==
[2019-10-26 22:02] VITALS: TEMP 96.5; O2SAT 100
--- NOTE | 2019-10-26 22:08 | ED.PDOC ---
History of Present Illness - General Chief Complaint: Abdominal Pain Stated Complaint: lower ab pain, N/V Time Seen by Provider: 10/26/19 21:48 Source: patient Exam Limitations: no limitations - History of Present Illness Initial Comments: the patient is a 34-year-old female presenting to the emergency room secondary to vague central lower abdominal discomfort present for approximately 30 minutes that caused her to have 2 episodes of vomiting. She is not having much discomfort currently. She denies diarrhea. No fever. No missed menstrual cycles. She does not think she is . No history of pancreatitis or gallbladder problems. No rebound or peritoneal signs. No vaginal discharge. no urinary symptoms.the patient does not appear to be in any distress at this time. Timing/Duration: 1/2 hour Severity: moderate Improving Factors: nothing Worsening Factors: nothing Associated Symptoms: nausea/vomiting Allergies/Adverse Reactions: Allergies NO KNOWN ALLERGY Allergy (Verified 10/26/19 22:02) Home Medications: Ambulatory Orders Ondansetron Odt [Zofran ODT] 4 mg PO Q8HR PRN #5 tab 10/26/19 Review of Systems - Review of Systems Constitutional: States: no symptoms reported EENTM: States: no symptoms reported Respiratory: States: no symptoms reported Cardiology: States: no symptoms reported Gastrointestinal/Abdominal: States: abdominal pain, nausea, vomiting Genitourinary: States: no symptoms reported Musculoskeletal: States: no symptoms reported Skin: States: no symptoms reported Neurological: States: no symptoms reported Endocrine: States: no symptoms reported All other Systems: No Change from Baseline Past Medical History (General) - Patient Medical History Hx Seizures: No Hx Stroke: No Hx Dementia: No Hx Asthma: No Hx of COPD: No Hx Cardiac Disorders: No Hx Congestive Heart Failure: No Hx Pacemaker: No Hx Hypertension: No Hx Thyroid Disease: No Hx Diabetes: No Hx Gastroesophageal Reflux: No Hx Renal Disease: No Hx Cancer: No Hx of HIV: No Hx Hepatitis C: No Hx MRSA: No Surgical History: no surgical history - Vaccination History Hx Tetanus, Diphtheria Vaccination: No Hx Influenza Vaccination: Yes Hx Pneumococcal Vaccination: No - Social History Hx Tobacco Use: No Hx Chewing Tobacco Use: No Hx Alcohol Use: No Hx Substance Use: No Hx Substance Use Treatment: No Hx Depression: No Hx Physical Abuse: No Hx Emotional Abuse: No Hx Suspected Abuse: No - Female History Hx Last Menstrual Period: 04/21/19 Patient : - unsure Family Medical History - Family History Mother Family History: No Known Living Status: Still Living Hx Family Asthma: No Hx Family Congestive Heart Failure: No Physical Exam - Physical Exam General Appearance: Alert, Comfortable, No apparent distress Eye Exam: bilateral normal Ears, Nose, Throat: hearing grossly normal, normal pharynx Neck: full range of motion Respiratory: no respiratory distress, no accessory muscle use Cardiovascular/Chest: normal peripheral pulses, no edema, other - egular rate Peripheral Pulses: radial,right: 2+, radial,left: 2+ Gastrointestinal/Abdominal: soft, other - vague mild discomfort below the umbilicus. No obvious palpable mass. No rebound or peritoneal signs. No guarding. 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 The patient has been resting fairly comfortably since her arrival here without any repeat vomiting. She will be dosed at a dose of Zofran here tonight will be written for prescription of Zofran to control any nausea and the next couple of days. She likely has a viral gastroenteritis based on her presentation. urinalysis and abdominal x-ray are reassuring. She needs to keep herself well- hydrated. follow-up with primary care doctor in the next couple of days. ER warnings were given for any significant worsening. nick burnette [id number] - Results/Orders Results/Orders: Laboratory Tests 10/26/19 10/26/19 22:00 22:00 Urine Color Dk yellow H Urine Appearance Clear Urine pH 6.0 Ur Specific [place] >= 1.030 Urine Protein Trace Urine Glucose (UA) Negative Urine Ketones Trace Urine Blood Negative Urine Nitrite Negative Urine Bilirubin Small H Urine Urobilinogen 1.0 Ur Leukocyte Esterase Negative Urine RBC 0-1 Urine WBC 1-3 Ur Epithelial Cells 1-3 Urine Bacteria Rare Urine HCG, Qual Negative two-view abdomen shows no evidence of any obstruction or free air.no obvious other acute abnormality. Departure - Departure Clinical Impression: Viral gastroenteritis Disposition: Discharge to Home or Self Care Condition: Fair Departure Forms: ED Discharge - Pt. Copy, Patient Portal Self Enrollment Instructions: Viral Gastroenteritis Diet: bland diet Activity: increase activity as tolerated Referrals: Min Zamora MD [Primary Care Provider] - 1-2 Weeks Prescriptions: Ondansetron Odt [Zofran ODT] 4 mg PO Q8HR PRN #5 tab PRN Reason: Nausea--Moderate Home Medications: Ambulatory Orders Ondansetron Odt [Zofran ODT] 4 mg PO Q8HR PRN #5 tab 10/26/19 Additional Instructions: the patient's 34-year-old female presenting to emergency room secondary to mild lower abdominal discomfort along with 2 episodes of nausea and vomiting. The patient has been resting fairly comfortably since her arrival here without any repeat vomiting. She will be dosed at a dose of Zofran here tonight will be written for prescription of Zofran to control any nausea and the next couple of days. She likely has a viral gastroenteritis based on her presentation. urinalysis and abdominal x-ray are reassuring. She needs to keep herself well- hydrated. follow-up with primary care doctor in the next couple of days. ER warnings were given for any significant worsening.
--- NOTE | 2019-10-26 22:46 | RAD ---
EXAM: XR Abdomen, 2 Views CLINICAL HISTORY: The patient is 34 years old and is Female; lower abd discomfort and 2 episodes vomiting TECHNIQUE: Frontal view of the abdomen/pelvis with upright view of the abdomen. COMPARISON: No relevant prior studies available. FINDINGS: INTRAPERITONEAL SPACE: No free air. GASTROINTESTINAL TRACT: Minimal stool is noted throughout the colon. No dilation. No abnormal calcifications or soft tissue masses are seen BONES/JOINTS: Unremarkable. IMPRESSION: Nonobstructive, nonspecific bowel gas pattern. Electronically signed by: Nyla Pelletier MD 10/26/2019 10:44 PM [employer]
[2019-10-26] MEDS ORDERED: ONDANSETRON ODT 8 MG TAB SL ONE (22:59)
[2019-10-26 23:14] VITALS: BP 107/76
== END 2019-10-26 23:14 | disposition home or self-care (01) ==
LOC: ER 21:46
DX: A08.4 Viral intestinal infection, unspecified (principal)

== ENCOUNTER 2020-02-06 11:28 | Emergency (ER) | payer OTHER ==
--- NOTE | 2020-02-06 12:15 | ED.PDOC ---
History of Present Illness - General Chief Complaint: ENT Problem Stated Complaint: sore throat Time Seen by Provider: 02/06/20 11:55 Additional Information: 34yo F who presents with sore throat, voice loss and cough. Symptoms onset 2-3 days ago. 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 No significant PMH. No fever or shortness or breath. No other reported symptoms. - History of Present Illness Allergies/Adverse Reactions: Allergies NO KNOWN ALLERGY Allergy (Verified 10/26/19 22:02) Home Medications: Ambulatory Orders Ondansetron Odt [Zofran ODT] 4 mg PO Q8HR PRN #5 tab 10/26/19 Amoxicillin 500 mg PO TID 7 Days #21 cap 02/06/20 Review of Systems - Review of Systems Constitutional: Denies: chills, fever EENTM: States: throat pain, other - Vocal hoarseness. Denies: nose congestion Respiratory: States: cough. Denies: short of breath Cardiology: Denies: chest pain, palpitations Gastrointestinal/Abdominal: Denies: abdominal pain, diarrhea, nausea, vomiting Genitourinary: Denies: dysuria, frequency Musculoskeletal: States: no symptoms reported Skin: States: no symptoms reported Past Medical History (General) - Patient Medical History Hx Seizures: No Hx Stroke: No Hx Dementia: No Hx Asthma: No Hx of COPD: No Hx Cardiac Disorders: No Hx Congestive Heart Failure: No Hx Pacemaker: No Hx Hypertension: No Hx Thyroid Disease: No Hx Diabetes: No Hx Gastroesophageal Reflux: No Hx Renal Disease: No Hx Cancer: No Hx of HIV: No Hx Hepatitis C: No Hx MRSA: No Surgical History: no surgical history - Vaccination History Hx Tetanus, Diphtheria Vaccination: No Hx Influenza Vaccination: Yes Hx Pneumococcal Vaccination: No - Social History Hx Tobacco Use: No Hx Chewing Tobacco Use: No Hx Alcohol Use: No Hx Substance Use: No Hx Substance Use Treatment: No Hx Depression: No Hx Physical Abuse: No Hx Emotional Abuse: No Hx Suspected Abuse: No - Female History Patient is a Female of Child Bearing Age (10 -59 yrs old): Yes Hx Last Menstrual Period: 04/21/19 Patient : - unsure Family Medical History - Family History Mother Family History: No Known Living Status: Still Living Hx Family Asthma: No Hx Family Congestive Heart Failure: No Physical Exam - Physical Exam General Appearance: Alert, Comfortable Eye Exam: bilateral normal Ear Exam: bilateral ear: auricle normal Throat Exam: other - Minimal erythema, no redness or pus. +vocal hoarseness. Neck: non-tender, full range of motion, supple Cardiovascular/Respiratory: regular rate, rhythm, normal peripheral pulses Abdominal Exam: non-tender, no hernia Neurologic: no motor/sensory deficits, normal mood/affect, oriented x 3 Skin Exam: normal color, warm/dry Progress - Progress Progress: DDX: Pharyngitis, laryngitis, URI, viral illness, pneumonia, influenza. 02/06/20 13:44 Strep neg. Pt has s/s of viral URI with laryngitis. Will cover for question of pharyngitis. At this time, there is a lower suspicion for COVID-19, however, we did discuss that we could not rule out that diagnosis today. Since she has symptoms that could be consistent with that diagnosis, I discussed current recommendations on outpatient testing and quarantine. The patient expressed understanding. Appropriate PPE including patient and physician masking were used. Interactions were brief. Results and plan discussed. I discussed return warnings. It was a pleasure to care for this patient today. 02/06/20 13:47 Tommy Beyer MD. #[id number] - Results/Orders Results/Orders: 02/06/20 12:08 STREP A SCREEN CULTURE Stat Laboratory Results - last 24 hr 02/06/20 12:08 Group A Strep Rapid Negative Departure - Departure Clinical Impression: Laryngitis, Upper respiratory infection, acute Time of Disposition: 13:13 Disposition: Discharge to Home or Self Care Condition: Good Departure Forms: ED Discharge - Pt. Copy, Patient Portal Self Enrollment Instructions: Viral Upper Respiratory Infection, Adult (DC), Laryngitis (DC) Prescriptions: Amoxicillin 500 mg PO TID 7 Days #21 cap Home Medications: Ambulatory Orders Ondansetron Odt [Zofran ODT] 4 mg PO Q8HR PRN #5 tab 10/26/19 Amoxicillin 500 mg PO TID 7 Days #21 cap 02/06/20 Additional Instructions: You likely have a viral upper respiratory infection with laryngitis today. We did not test you for COVID-19 and cannot rule out this diagnosis. We recommend you contact your primary doctor and [facility] for further guidance and evaluation. Current recommendations are for 14 days of quarantine for any patients with signs and symptoms potentially consistent with COVID-19.
[2020-02-06 13:33] VITALS: BP 107/65; TEMP 96.6; O2SAT 97
== END 2020-02-06 13:33 | disposition home or self-care (01) ==
LOC: ER 11:28
DX: J06.9 Acute upper respiratory infection, unspecified (principal); J04.0 Acute laryngitis

== ENCOUNTER 2020-10-29 15:56 | Emergency (ER) | payer SELFPAY ==
--- NOTE | 2020-10-29 16:43 | RAD ---
EXAM: XR Right Ankle, 3 Views CLINICAL HISTORY: pain,swelling TECHNIQUE: Frontal, lateral and oblique views of the right ankle. COMPARISON: No relevant prior studies available. FINDINGS: Limitations: None. Bones/joints: No acute fracture or osseous destruction. Normal alignment. Soft tissues: There is mild lateral soft tissue swelling. There are 2 tiny well-corticated ossicles projecting adjacent to the tip of the medial malleolus likely related to old trauma. No acute fracture. Ankle mortise symmetric. IMPRESSION: There is soft tissue swelling without acute bony abnormality. Electronically signed by: Stefania Tarango MD 10/29/2020 4:41 PM [facility]
--- NOTE | 2020-10-29 16:47 | ED.PDOC ---
History of Present Illness - General Chief Complaint: Lower Extremity Injury Stated Complaint: right ankle pain Time Seen by Provider: 10/29/20 16:45 Source: patient, RN notes reviewed, Vital Signs reviewed Exam Limitations: no limitations - History of Present Illness Initial Comments: Patient is a 35-year-old white female who presents with 2 days of right ankle pain. Patient was at work when she twisted her ankle. She has been walking and working on it since that time. The ankle is painful. It is a throbbing pain. It is moderate in intensity. She has been placing ice and an Julio wrap on it without improvement. There is no radiation of the pain. She is neurovascularly intact distally. She denies any weakness or numbness. Occurred: other - 2-3 days ago Pain - Lower Extremity: severe: Right Ankle Method of Injury: twisted Improving Factors: nothing Worsening Factors: movement Allergies/Adverse Reactions: Allergies NO KNOWN ALLERGY Allergy (Verified 10/26/19 22:02) Home Medications: Ambulatory Orders NK 10/29/20 Review of Systems - Review of Systems Constitutional: States: no symptoms reported, see HPI. Denies: chills, fever, malaise, weakness EENTM: States: no symptoms reported. Denies: eye pain, blurred vision, double vision Respiratory: States: no symptoms reported. Denies: cough, orthopnea, short of breath Cardiology: States: no symptoms reported. Denies: chest pain, palpitations, syncope Gastrointestinal/Abdominal: States: no symptoms reported. Denies: abdominal pain, nausea, vomiting Genitourinary: States: no symptoms reported. Denies: dysuria, frequency Musculoskeletal: States: see HPI, joint pain - right ankle, latera with swelling and pain with palation and walking. Skin: States: no symptoms reported. Denies: change in color, rash Neurological: States: no symptoms reported. Denies: numbness, paresthesia, tingling, tremors, weakness Endocrine: States: no symptoms reported. Denies: increased hunger, increased thirst, increased urine Hematologic/Lymphatic: States: no symptoms reported. Denies: blood clots, easy bleeding All other Systems: Reviewed and Negative Past Medical History (General) - Patient Medical History Hx Seizures: No Hx Stroke: No Hx Dementia: No Hx Asthma: No Hx of COPD: No Hx Cardiac Disorders: No Hx Congestive Heart Failure: No Hx Pacemaker: No Hx Hypertension: No Hx Thyroid Disease: No Hx Diabetes: No Hx Gastroesophageal Reflux: No Hx Renal Disease: No Hx Cancer: No Hx of HIV: No Hx Hepatitis C: No Hx MRSA: No Surgical History: no surgical history - Vaccination History Hx Tetanus, Diphtheria Vaccination: No Hx Influenza Vaccination: No Hx Pneumococcal Vaccination: No - Social History Hx Tobacco Use: No Hx Chewing Tobacco Use: No Hx Alcohol Use: No Hx Substance Use: No Hx Substance Use Treatment: No Hx Depression: No Hx Physical Abuse: No Hx Emotional Abuse: No Hx Suspected Abuse: No - Female History Hx Last Menstrual Period: 04/21/19 Patient : - unsure Family Medical History - Family History Mother Family History: No Known Living Status: Still Living Hx Family Asthma: No Hx Family Congestive Heart Failure: No Physical Exam - Physical Exam General Appearance: Alert, Anxious, Well Developed, Well Groomed, Well Hydrated, Well Nourished Eyes, Ears, Nose, Throat: PERRL/EOMI, normal ENT inspection, pharynx normal Neck: non-tender, full range of motion, supple, normal inspection Cardiovascular/Respiratory: no M/R/G, normal peripheral pulses, no JVD, normal breath sounds, no respiratory distress, tachycardia Gastrointestinal/Abdominal: non-tender, no organomegaly Back: normal inspection, no CVA tenderness, no vertebral tenderness Thigh/Hip: normal inspection, non-tender, no evidence of injury, normal ROM Leg: normal inspection, non-tender, no evidence of injury, normal ROM Knee: normal inspection, non-tender, no evidence of injury, normal ROM Ankle: bone tenderness - lateral aspect of right ankle, limited ROM, soft tissue tenderness, swelling Foot: normal inspection, non-tender, no evidence of injury, normal ROM Neuro/Tendon: normal sensation, normal motor functions, normal tendon functions Mental Status: alert, oriented x 3 Skin: normal color, warm/dry Progress - Progress Progress: Differential diagnosis: Ankle sprain, ankle fracture, foot sprain, foot fracture among others. 10/29/20 17:34 X-rays do not show any fracture. Patient has a bed sprain. Plan on 3D walking boot and follow-up with PCP for referral for physical therapy. I discussed this plan of care with the patient she voices understanding and agreement. Wilfredo Coker M.D. #[id number] - Results/Orders Results/Orders: EXAM: XR Right Ankle, 3 Views CLINICAL HISTORY: pain,swelling TECHNIQUE: Frontal, lateral and oblique views of the right ankle. COMPARISON: No relevant prior studies available. FINDINGS: Limitations: None. Bones/joints: No acute fracture or osseous destruction. Normal alignment. Soft tissues: There is mild lateral soft tissue swelling. There are 2 tiny well-corticated ossicles projecting adjacent to the tip of the medial malleolus likely related to old trauma. No acute fracture. Ankle mortise symmetric. IMPRESSION: There is soft tissue swelling without acute bony abnormality. Electronically signed by: Stefania Tarango MD 10/29/2020 4:41 PM Departure - Departure Clinical Impression: High ankle sprain of right lower extremity Qualifiers: Encounter type: initial encounter Qualified Code(s): S93.491A - Sprain of other ligament of right ankle, initial encounter Time of Disposition: 17:35 Disposition: Discharge to Home or Self Care Condition: Good Departure Forms: ED Discharge - Pt. Copy, Patient Portal Self Enrollment Instructions: DI for Leg Pain, Ankle Sprain (DC), How to Make a Hot/Cold Rice Pack Diet: resume usual diet Activity: increase activity as tolerated, no pushing/pulling with affected limb Home Medications: Ambulatory Orders NK 10/29/20
[2020-10-29 18:08] VITALS: BP 130/93; TEMP 98; O2SAT 96
== END 2020-10-29 18:07 | disposition home or self-care (01) ==
LOC: ER 15:56
DX: S93.491A Sprain of other ligament of right ankle, initial encounter (principal); X50.9XXA Other and unspecified overexertion or strenuous movements or postures, initial encounter; Y92.9 Unspecified place or not applicable